=== PATIENT | female | born 1985 | race Caucasian/White ===

== ENCOUNTER → 2016-03-30 | Outpatient (CLI) | payer BC ==
--- NOTE | 2016-03-30 09:28 | REP ---
Clinical: Anatomical evaluation. Comparison: None . Findings: Examination demonstrates a single live intrauterine in breech presentation. motion is identified by technologist. Placenta is noted posteriorly and grade one without evidence for placenta previa or abruption; incidental note is made of small placental lakes. Amniotic fluid volume is normal. Cervix measures 4.0 cm in length and appears closed. Nuchal cord cannot be excluded. Gestational age by LMP 19 weeks 2 days with CASH 08/22/2016 . Gestational age by current measurements 19 weeks 2 days with CASH 08/22/2016 . FHR equals 145 beats per minute. BPD 4.2 cm 18 weeks 5 days HC 17.1 cm 19 weeks 5 days AC 14.5 cm 19 weeks 6 days FL 2.8 cm 18 weeks 5 days HL 2.9 cm 19 weeks 4 days HC/AC ratio 1.17 Estimated weight 286 grams ( 47th percentile). Anatomical assessment demonstrates normal structures including cranium, choroid plexus, cavum, cerebellum/posterior fossa, facial features, lungs, four-chamber heart/ventricular outflow tracts, diaphragm, stomach, cord insertion/three-vessel cord, kidneys/bladder, and extremities. Impression: Single live intrauterine in breech presentation. Nuchal cord cannot be excluded. Limited evaluation of the spine. Remainder of the anatomical assessment is complete and normal. Signed by Elliott Goddard MD 03/30/2016 09:20 A
== END ==
LOC: M RAD 08:04
PROVIDERS: ATTEND Advanced Practice Midwife
DX: Z36 Encounter for antenatal screening of mother (principal)

== ENCOUNTER → 2016-04-20 | Outpatient (CLI) | payer BC ==
--- NOTE | 2016-04-21 06:07 | REP ---
OB ULTRASOUND: Real-time sonographic evaluation of the gravid uterus performed. There is a single living intrauterine gestation. Estimated gestational age 22 weeks 2 days. EDC 08/22/2016. Today's measurements indicate appropriate growth. BPD 57 mm 23 weeks 2 days, 76th percentile HC 208 mm 22 weeks 6 days, 67th percentile AC 185 mm 23 weeks 2 days, 72nd percentile FL 39 mm 22 weeks 3 days, 55th percentile HC/AC ratio 1.12 within normal range. Estimated weight 550 grams at the 67th percentile. Cervix is closed and measures 4.1 cm in length. heart rate 126 beats per minute. SEEN/GROSSLY UNREMARKABLE Lateral ventricles Yes Posterior fossa Yes Upper lip Yes Four-chamber heart No LVOT No RVOT Yes Stomach Yes Cord insertion Yes Three vessel cord Yes Kidneys Yes Bladder Yes Spine Yes position: Breech. Placenta: Posterior and grade 0 with no previa or abruption. Amniotic fluid: Within normal limits. Signed by Travis Ingram MD 04/21/2016 10:13 A
== END ==
LOC: M RAD 17:58
PROVIDERS: ATTEND Advanced Practice Midwife
DX: Z34.82 Encounter for supervision of other normal pregnancy, second trimester (principal); Z36 Encounter for antenatal screening of mother; Z3A.22 22 weeks gestation of pregnancy

== ENCOUNTER → 2016-04-24 | Outpatient (REF) | payer BC | LOC: M LAB REF 17:08 | PROVIDERS: ATTEND Physician Assistant Medical | DX: J02.9 Acute pharyngitis, unspecified (principal) ==

== ENCOUNTER → 2016-05-26 | Outpatient (CLI) | payer BC ==
[2016-05-26 13:57] LABS: MEAN CORPUSCULAR VOLUME 94.1 fl (80.0-96.0); RED CELL DISTRIBUTION WIDTH 12.6 % (11.5-14.5); WHITE BLOOD COUNT 9.3 K/mm3 (4.0-10.0)
== END ==
LOC: M SMT 08:08
PROVIDERS: ATTEND Advanced Practice Midwife
DX: Z34.82 Encounter for supervision of other normal pregnancy, second trimester (principal); Z36 Encounter for antenatal screening of mother; Z3A.00 Weeks of gestation of pregnancy not specified

== ENCOUNTER → 2016-07-09 | Outpatient (REF) | payer BC | LOC: M LAB REF 12:37 | PROVIDERS: ATTEND Physician Assistant Medical | DX: J02.9 Acute pharyngitis, unspecified (principal) ==

== ENCOUNTER → 2016-07-29 | Outpatient (REF) | payer BC | LOC: M LAB REF 13:00 | PROVIDERS: ATTEND Advanced Practice Midwife | DX: Z34.83 Encounter for supervision of other normal pregnancy, third trimester (principal); Z36 Encounter for antenatal screening of mother; Z3A.00 Weeks of gestation of pregnancy not specified ==

== ENCOUNTER 2016-08-28 06:13 | Inpatient (IN) | payer BC ==
[2016-08-28] VITALS (9 sets, daily range): BP systolic 94–122; BP diastolic 52–69
[~2016-08-28] VITALS: Ht 165.1 cm; Wt 82.0 kg
[2016-08-28] MEDS ORDERED: PRENTAB9 PO (06:19)
[2016-08-28 06:47] LABS: MEAN CORPUSCULAR HEMOGLOBIN 31.7 pg (27.0-33.0); MEAN CORPUSCULAR HGB CONC 34.7 g/dl (32.0-36.5); MEAN CORPUSCULAR VOLUME 91.3 fl (80.0-96.0); RED CELL DISTRIBUTION WIDTH 12.9 % (11.5-14.5); WHITE BLOOD COUNT 10.7 K/mm3 (4.0-10.0)
[2016-08-28] MEDS ORDERED: LACTATED RINGER'S 1000 ML IV STA (07:23)
[2016-08-28] MEDS ORDERED: LR 1,000 ML IV SCH ×2 (07:23→20:11)
[2016-08-28] MEDS ORDERED: miSOPROStol 50 MCG 1/2 TAB (S0191) SL ONE (07:30)
[2016-08-28] MEDS ORDERED: OXYTOCIN 30 UNITS IN 0.9% NaCl 500ML IV BAG (J2590) As Ordered ONE (12:00)
[2016-08-28] MEDS ORDERED: OXYTOCIN DRIP 30 UNITS in APPROPRIATE DILUENT 1 EA IV SCH ×2 (12:00→20:11)
[2016-08-28] MEDS ORDERED: FENTANYL 2MCG/ML ROPIVACAINE 0.2% IN 0.9% NACL 200ML IVBAG As Ordered ONE (14:54)
[2016-08-28] MEDS ORDERED: EPIDURAL COMMENT XX SCH (15:45)
[2016-08-28] MEDS ORDERED: REFRIGERATOR IV KEYS XX PRN (15:45)
[2016-08-28] MEDS ORDERED: ePHEDrine SULFATE 25 MG/5 ML(5MG/ML) SYRINGE IV PRN (15:45)
[2016-08-28] MEDS ORDERED: ONDANSETRON 4MG/2ML VIAL (J2405) IV PRN ×2 (15:45→20:15)
[2016-08-28] MEDS ORDERED: LACTATED RINGER'S 1000 ML IV PRN (15:45)
[2016-08-28] MEDS ORDERED: FENTANYL/ROPIVACAINE/NACL BAG 200 ML EPIDURAL SCH (15:45)
[2016-08-28] MEDS ORDERED: NALOXONE INJ 0.4 MG/1 ML VIAL (J2310) IV PRN (15:45)
[2016-08-28] MEDS ORDERED: diphenhydrAMINE INJ 50MG/ML VIAL (J1200) IV PRN (15:45)
[2016-08-28] MEDS ORDERED: EPIDURAL/PCA KEYS XX PRN (15:45)
[2016-08-28] MEDS ORDERED: FAMOTIDINE 20 MG TAB As Ordered ONE (18:13)
[2016-08-28] MEDS ORDERED: ACETAMINOPHEN 500 MG TAB PO PRN (20:15)
[2016-08-28] MEDS ORDERED: DIBUCAINE 1% OINTMENT 30GM TOP PRN (20:15)
[2016-08-28] MEDS ORDERED: PROMETHAZINE 25 MG TAB PO PRN (20:15)
[2016-08-28] MEDS ORDERED: RHOGAM 300 MCG (1500 IU) INJ (J2790) IM SCH (20:15)
[2016-08-28] MEDS ORDERED: MEASLES,MUMPS,RUBELLA VACCINE INJ (MMR-II) (90707) SC SCH (20:15)
[2016-08-28] MEDS ORDERED: FAMOTIDINE 20 MG TAB PO SCH (21:00)
[2016-08-28] MEDS: IBUPROFEN 800 MG TAB PO PRN (23:26)
[2016-08-29 01:00] VITALS: BP 118/58
[2016-08-29 06:15] VITALS: BP 109/65
[2016-08-29] MEDS: PRENATAL VITAMINS CHEWABLE TABLET PO SCH (09:32)
[2016-08-29] MEDS: IBUPROFEN 800 MG TAB PO PRN ×2 (09:33→20:41)
[2016-08-29] MEDS: DOCUSATE SODIUM 100 MG CAP PO PRN (15:59)
[2016-08-29 18:01] VITALS: BP 121/65
[2016-08-30 02:30] VITALS: BP 120/73
[2016-08-30 06:04] VITALS: BP 107/59
[2016-08-30] MEDS: DOCUSATE SODIUM 100 MG CAP PO PRN (07:26)
[2016-08-30] MEDS: IBUPROFEN 800 MG TAB PO PRN (07:26)
[2016-08-30] MEDS: PRENATAL VITAMINS CHEWABLE TABLET PO SCH (07:26)
[2016-08-30] MEDS ORDERED: IBUP-1114 PO (08:16)
[2016-08-30] MEDS ORDERED: ACET50TA PO (08:16)
== END 2016-08-30 10:10 | disposition home or self-care (01) | DRG 560 ==
LOC: M LDI 06:13 → M OBS 23:44
PROVIDERS: ADMIT Obstetrics & Gynecology; ATTEND Obstetrics & Gynecology
PROC: 10E0XZZ Delivery of Products of Conception, External Approach (ICD-10-PCS; principal; 2016-08-28)
PROC: 0KQM0ZZ Repair Perineum Muscle, Open Approach (ICD-10-PCS; 2016-08-28)
PROC: 3E0P7GC Introduction of Other Therapeutic Substance into Female Reproductive, Via Natural or Artificial Opening (ICD-10-PCS; 2016-08-28)
DX: O48.0 Post-term pregnancy (principal); O70.1 Second degree perineal laceration during delivery; Z3A.40 40 weeks gestation of pregnancy; Z37.0 Single live birth

== ENCOUNTER → 2017-02-11 | Outpatient (CLI) | payer BC ==
[2017-02-11 18:16] LABS: FREE T4 1.05 NG/DL (0.76-1.46)
== END ==
LOC: M WUC 10:48
DX: F41.1 Generalized anxiety disorder (principal); E55.9 Vitamin D deficiency, unspecified
CPT/HCPCS: 84443

== ENCOUNTER → 2018-06-23 | Outpatient (REF) | payer BC ==
[~2018-06-23] MED LIST: IBUP-1114 PO; MAPA500T2 PO; PRENTAB9 PO
== END ==
LOC: M LAB REF 12:24
PROVIDERS: ATTEND Physician Assistant Medical
DX: J02.9 Acute pharyngitis, unspecified (principal)

== ENCOUNTER → 2020-01-23 | Outpatient (REF) | payer BC | LOC: M SFHCWAGY 13:16 | PROVIDERS: ATTEND Advanced Practice Midwife | DX: Z12.4 Encounter for screening for malignant neoplasm of cervix (principal) ==

== ENCOUNTER → 2020-11-28 | Outpatient (CLI) | payer BC ==
[2020-11-28 12:47] LABS: C REACTIVE PROTEIN QUANTITATIV < 0.30 MG/DL (0.00-0.30); FREE T4 0.98 NG/DL (0.76-1.46); RHEUMATOID FACTOR QUANT < 10.0 IU/ML (<15.0); THYROGLOBULIN ANTIBODY < 15.0 U/ML (<60.0); THYROID PEROXIDASE ANTIBODY < 28.0 U/ML (<60.0); TOTAL 25(OH) VITAMIN D 57.4 NG/ML (30.0-100.0); URIC ACID 3.6 MG/DL (2.6-6.0)
[2020-11-30 20:07] LABS: CYCLIC CITRULLINATED PEPTIDE 6 units (0-19); Lyme Disease IgG/IgM Antibodie <0.91 ISR (0.00-0.90); Lyme Disease IgM Ab Quantitati <0.80 index (0.00-0.79)
== END ==
LOC: M WUC 08:55
PROVIDERS: ATTEND Family Medicine
DX: M25.571 Pain in right ankle and joints of right foot (principal); M25.572 Pain in left ankle and joints of left foot; Z13.29 Encounter for screening for other suspected endocrine disorder

== ENCOUNTER → 2021-09-09 | Outpatient (REF) | payer BC | LOC: M WUC 12:02 | PROVIDERS: ATTEND Student in an Organized Health Care Education/Training Program | DX: J02.9 Acute pharyngitis, unspecified (principal) ==

== ENCOUNTER → 2021-10-05 | Outpatient (CLI) | payer OTHER | LOC: M PLAIMG 09:58 | PROVIDERS: ATTEND Physician Assistant | DX: M25.511 Pain in right shoulder (principal) ==

== ENCOUNTER → 2021-11-23 | Outpatient (CLI) | payer OTHER | LOC: M PLALAB 08:44 | PROVIDERS: ATTEND Obstetrics & Gynecology | DX: Z32.01 Encounter for pregnancy test, result positive (principal) ==

== ENCOUNTER → 2023-03-31 | Outpatient (CLI) | payer BC | LOC: M PLAIMG 09:29 | PROVIDERS: ATTEND Family Medicine | DX: M75.41 Impingement syndrome of right shoulder (principal) ==

== ENCOUNTER → 2024-05-10 | Outpatient (REF) | payer OTHER ==
[2024-05-10 14:35] LABS: BASO % 0.4 % (0.0-1.0); EOS # 0.2 10^3/uL (0.0-0.5); EOS % 2.2 % (0.0-3.0); HEMATOCRIT 37.3 % (36.0-47.0); HEMOGLOBIN 12.5 g/dl (12.0-15.5); LYMPH # 2.4 10^3/uL (1.5-5.0); LYMPH % 35.1 % (24.0-44.0); MEAN CORPUSCULAR HEMOGLOBIN 30.9 pg (27.0-33.0); MEAN CORPUSCULAR HGB CONC 33.5 g/dl (32.0-36.5); MEAN CORPUSCULAR VOLUME 92.1 fl (80.0-96.0); MONO # 0.6 10^3/uL (0.0-0.8); NEUTROPHILS # 3.6 10^3/uL (1.5-8.5); PLATELET COUNT, AUTOMATED 291 10^3/uL (150-450); RED BLOOD COUNT 4.05 10^6/uL (4.00-5.40); WHITE BLOOD COUNT 6.8 10^3/uL (4.0-10.0)
[2024-05-10 14:59] LABS: HEMOGLOBIN A1c 4.6 % (4.0-6.0)
[2024-05-10 15:08] LABS: ALBUMIN 3.6 G/DL (3.2-5.2); ALKALINE PHOSPHATASE 52 U/L (35-104); ALT/SGPT 17 U/L (7.0-40); AST/SGOT 13 U/L (<34); BILIRUBIN,TOTAL 0.5 MG/DL (0.3-1.2); BLOOD UREA NITROGEN 11 MG/DL (9-23); CALCIUM LEVEL 8.8 MG/DL (8.5-10.1); CARBON DIOXIDE LEVEL 29 MMOL/L (20-31); CHLORIDE LEVEL 106 MMOL/L (98-107); CHOLESTEROL LEVEL 131 MG/DL (<200); CREATININE FOR GFR 0.81 MG/DL (0.55-1.30); GLOMERULAR FILTRATION RATE > 60.0 (>58); GLUCOSE, FASTING 91 MG/DL (60-100); HDL CHOLESTEROL 68.6 MG/DL (>40); LDL CHOLESTEROL 50.2 MG/DL (<100); NON-HDL-C 62.4 MG/DL; POTASSIUM SERUM 4.6 MMOL/L (3.5-5.1); SODIUM LEVEL 143 MMOL/L (136-145); TOTAL PROTEIN 6.2 G/DL (5.7-8.2); TRIGLYCERIDES LEVEL 61 MG/DL (<150)
[2024-05-10 15:09] LABS: FREE T4 1.28 NG/DL (0.89-1.76); THYROID STIMULATING HORMONE 4.098 uIU/ML (0.55-4.78)
[2024-05-10 15:10] LABS: TOTAL 25(OH) VITAMIN D 54.2 NG/ML (20.0-100.0)
== END ==
LOC: M SFHCADAM 08:24
PROVIDERS: ATTEND Physician Assistant
DX: Z00.00 Encounter for general adult medical examination without abnormal findings (principal); F98.8 Other specified behavioral and emotional disorders with onset usually occurring in childhood and adolescence; Z13.220 Encounter for screening for lipoid disorders; Z68.26 Body mass index [BMI] 26.0-26.9, adult; F32.1 Major depressive disorder, single episode, moderate

== ENCOUNTER → 2024-05-16 | Outpatient (CLI) | payer OTHER | LOC: M WHC 13:35 | PROVIDERS: ATTEND Physician Assistant | DX: N63.12 Unspecified lump in the right breast, upper inner quadrant (principal) ==

== ENCOUNTER → 2024-08-14 | Outpatient (REF) | payer OTHER ==
[2024-08-16 12:58] LABS: HPV APTIMA Detected (Not Detected)
== END ==
LOC: M SFHCWAGY 13:02
PROVIDERS: ATTEND Obstetrics & Gynecology
DX: Z12.4 Encounter for screening for malignant neoplasm of cervix (principal)

== ENCOUNTER → 2024-09-11 | Outpatient (CLI) | payer OTHER | LOC: M WHC 07:38 | PROVIDERS: ATTEND Surgery | DX: N63.12 Unspecified lump in the right breast, upper inner quadrant (principal) ==